=== PATIENT | male | born 1990 | race African-American/Black ===

== ENCOUNTER 2019-05-19 19:23 | Emergency (ER) | payer OTHER ==
[~2019-05-19] VITALS: Ht 180.3 cm; Wt 156.0 kg
[2019-05-19 20:03] LABS: URINE BILIRUBIN NEGATIVE (Negative); URINE BLOOD NEGATIVE (Negative); URINE CLARITY CLEAR; URINE COLOR YELLOW; URINE GLUCOSE-RANDOM* NEGATIVE (Negative); URINE KETONES NEGATIVE (Negative); URINE LEUKOCYTES-REFLEX NEGATIVE (Negative); URINE NITRITE-REFLEX NEGATIVE (Negative); URINE PROTEIN (DIPSTICK) NEGATIVE (Negative); URINE SPECIFIC GRAVITY 1.025 (1.005-1.035); URINE UROBILINOGEN 0.2 E.U./dl (0.2-1.0)
[2019-05-19 21:53] LABS: HEMATOCRIT 46.2 % (42.0-52.0); HEMOGLOBIN 15.5 gm/dL (14.0-18.0); MCH 31.1 pg (26.0-34.0); MCHC 33.5 g/dL (28.0-37.0); MCV 92.8 fL (80.0-100.0); PLATELET COUNT 172 thou/uL (150-400); RBC 4.97 mil/uL (4.50-6.00); RDW 12.6 % (10.5-14.5); WBC 7.7 thou/uL (4.0-11.0)
[2019-05-19 22:09] LABS: CALCIUM 9.2 mg/dL (8.5-10.1); CREATININE 1.1 mg/dL (0.7-1.3); POTASSIUM 4.1 mmol/L (3.5-5.1)
[2019-05-19 22:17] LABS: ALBUMIN 3.6 g/dL (3.4-5.0); TOTAL BILIRUBIN 0.4 mg/dL (<0.1-1.0); TOTAL PROTEIN 7.7 g/dL (6.4-8.2)
[2019-05-19 22:59] LABS: ABSOLUTE NEUTROPHILS 4.6 thou/uL (1.4-8.2)
[2019-05-19 23:00] LABS: PLATELET ESTIMATE NORMAL
[2019-05-19] MEDS ORDERED: TRAMADOL 50 MG50 MG PO (23:31)
[2019-05-19] MEDS ORDERED: NAPROSYN500 MG PO (23:31)
[2019-05-19] MEDS ORDERED: NORFLEX100 MG PO (23:31)
[2019-05-19 23:44] VITALS: BP 130/97
== END 2019-05-20 | disposition home or self-care (01) ==
LOC: ER 19:23
PROVIDERS: Emergency Medicine
DX: K59.00 Constipation, unspecified (principal); M54.6 Pain in thoracic spine; R10.9 Unspecified abdominal pain; Z88.1 Allergy status to other antibiotic agents